=== PATIENT | female | born 1970 | race Caucasian/White ===

== ENCOUNTER 2017-07-14 14:45 | Emergency (ER) | payer MEDICAID ==
[~2017-07-14] VITALS: Ht 180.3 cm; Wt 72.7 kg
[2017-07-14] MEDS ORDERED: IBUP-2071 PO (14:49)
[2017-07-14] MEDS ORDERED: ACETAMINOPHEN/CODEINE 300-30 MG TABLET PO ONE (16:30)
[2017-07-14 16:48] VITALS: BP 119/81
== END 2017-07-14 17:33 | disposition home or self-care (01) ==
LOC: EMS 14:48
DX: S30.0XXA Contusion of lower back and pelvis, initial encounter (principal); S80.02XA Contusion of left knee, initial encounter; M25.572 Pain in left ankle and joints of left foot; W22.8XXA Striking against or struck by other objects, initial encounter; Y93.89 Activity, other specified; Y92.811 Bus as the place of occurrence of the external cause; Y99.8 Other external cause status
CPT/HCPCS: 99284

== ENCOUNTER 2020-05-28 17:37 | Emergency (ER) | payer MEDICAID, OTHER ==
[~2020-05-28] VITALS: Ht 162.6 cm; Wt 52.3 kg
[~2020-05-28 17:37] MED LIST: IBUP-2071 PO
[2020-05-28] MEDS ORDERED: ONDANSETRON HCL 4 MG/2 ML VIAL IVP ONE ×2 (18:15→20:15)
[2020-05-28] MEDS ORDERED: SODIUM CHLORIDE 0.9% 1,000 ML IV ONE ×2 (18:15→20:15)
[2020-05-28 19:00] LABS: BASOPHILS % (AUTO) 0.1 % (0.0-2.0); EOSINOPHILS % (AUTO) 0.1 % (1.0-6.0); HEMATOCRIT 42.6 % (36-46); HEMOGLOBIN 14.4 g/dL (12.0-16.0); LYMPHOCYTES # (AUTO) 0.6 K/uL (1.0-4.8); LYMPHOCYTES % (AUTO) 3.5 % (22.0-44.0); MEAN CORPUSCULAR HEMOGLOBIN 35.3 pg (26.0-34.0); MEAN CORPUSCULAR HGB CONC 33.9 G/dL (31.0-37.0); MEAN CORPUSCULAR VOLUME 104 fL (80-100); MONOCYTES # (AUTO) 0.7 K/uL (0.1-1.0); MONOCYTES % (AUTO) 3.9 % (2.0-9.0); NEUTROPHILS # (AUTO) 15.6 K/uL (1.8-7.7); NEUTROPHILS % (AUTO) 92.4 % (40.0-70.0); PLATELET COUNT (AUTO) 127 K/uL (150-450); RED BLOOD CELL COUNT(AUTO) 4.09 MIL/uL (4.00-5.20)
[2020-05-28 19:11] LABS: COVID AG,FIA SOURCE NASOPHARYNGEAL
[2020-05-28 19:20] LABS: ALBUMIN 3.4 g/dL (3.4-5.0); ALKALINE PHOSPHATASE 128 U/L (46-116); ANION GAP 16 mmol/L (8-16); BILIRUBIN,TOTAL 6.4 mg/dL (0.1-1.0); CALCIUM, TOTAL 7.8 mg/dL (8.8-10.5); CARBON DIOXIDE 19 mmol/L (22-29); CHLORIDE 97 mmol/L (98-107); CREATININE 2.94 mg/dL (0.60-1.30); GLOMERULAR FILTR. RATE CALC 17 mL/min (>60); GLUCOSE,RANDOM 50 mg/dL (70-110); HCG,QUANTITATIVE 1 mIU/mL (0-6); LIPASE 69 U/L (73-393); POTASSIUM 3.7 mmol/L (3.5-5.1); SODIUM SERUM 132 mmol/L (136-145); TOTAL PROTEIN, SERUM 6.5 g/dL (6.4-8.2); UREA NITROGEN, BLOOD 50 mg/dL (7-18)
[2020-05-28 19:43] LABS: ALANINE AMINOTRANSFERASE 7946 U/L (12-78)
[2020-05-28 19:46] LABS: INFLUENZA TYPE A NEGATIVE FOR TYPE A (NEGATIVE); INFLUENZA TYPE B NEGATIVE FOR TYPE B (NEGATIVE)
[2020-05-28 19:48] LABS: ASPARTATE AMINOTRANSFERASE 6392 U/L (15-37)
[2020-05-28 20:17] LABS: ACETAMINOPHEN < 2 mcg/mL (10-30)
[2020-05-28 20:19] LABS: PROTHROMBIN TIME 20.4 SEC (9.4-11.6)
[2020-05-28] MEDS ORDERED: METOCLOPRAMIDE HCL 5 MG/ML 2 ML VIAL IVP ONE (21:00)
[2020-05-28] MEDS ORDERED: DEXTROSE 50%-WATER 25 GM/50 ML SYRINGE IVP ONE (21:00)
[2020-05-28] MEDS ORDERED: PHYTONADIONE 10 MG/1 ML AMP IM ONE (21:15)
[2020-05-28] MEDS ORDERED: ACETYLCYSTEINE IV ONE ×3 (21:45→23:00)
[2020-05-28] MEDS ORDERED: WATER IV ONE ×3 (21:45→23:00)
[2020-05-28] MEDS ORDERED: DEXTROSE 5% IV ONE ×3 (21:45→23:00)
[2020-05-28 21:57] LABS: GLUCOSE,POINT OF CARE 275 MG/DL (70-110)
[2020-05-28] MEDS ORDERED: LORazepam 2 MG TABLET PO PRN (22:30)
[2020-05-28 22:47] LABS: CALCIUM, TOTAL 6.6 mg/dL (8.8-10.5); CREATININE 2.93 mg/dL (0.60-1.30); POTASSIUM 3.1 mmol/L (3.5-5.1)
[2020-05-28 22:58] LABS: ALBUMIN 2.7 g/dL (3.4-5.0); BILIRUBIN,TOTAL 5.4 mg/dL (0.1-1.0); TOTAL PROTEIN, SERUM 5.3 g/dL (6.4-8.2)
[2020-05-28 23:09] LABS: LACTIC ACID 2.3 mmol/L (0.4-2.0)
[2020-05-28] MEDS: 1: MAGNESIUM SULFATE 2 GM, MVI, ADULT NO.1 WITH VIT K 10 ML, THIAMINE 100 MG, FOLIC ACID IV SCH ×5 (23:50)
[2020-05-29] LABS: GLUCOSE,POINT OF CARE 219 MG/DL (70-110)
[2020-05-29] MEDS ORDERED: ACETYLCYSTEINE IV ONE (03:00)
[2020-05-29] MEDS ORDERED: WATER IV ONE (03:00)
[2020-05-29] MEDS ORDERED: DEXTROSE 5% IV ONE (03:00)
[2020-05-29 04:17] LABS: GLUCOSE,POINT OF CARE 151 MG/DL (70-110)
[2020-05-29 04:27] LABS: APPEARANCE,URINE CLOUDY (CLEAR); BILIRUBIN,URINE NEGATIVE (NEGATIVE); GLUCOSE, URINE (UA) NEGATIVE (NEGATIVE); KETONES,URINE TRACE mg/dL (NEGATIVE); LEUKOCYTE ESTERASE ,URINE NEGATIVE (NEGATIVE); NITRATE,URINE NEGATIVE (NEGATIVE); OCCULT BLOOD,URINE MODERATE (NEGATIVE); PH,URINE 5.5 (5.0-8.0); PROTEIN,URINE TRACE (NEGATIVE); UROBILINOGEN,URINE 0.2 mg/dL (<=1.0)
[2020-05-29 04:33] LABS: AMPHET/METH SCREEN,URINE NEGATIVE (NEGATIVE); BARBITURATE SCREEN, URINE NEGATIVE (NEGATIVE); BENZODIAZEPINES SCREEN,URINE NEGATIVE (NEGATIVE); CANNABINOID SCREEN,URINE NEGATIVE (NEGATIVE); COCAINE SCREEN,URINE NEGATIVE (NEGATIVE); METHADONE SCREEN, URINE NEGATIVE (NEGATIVE); OPIATE SCREEN,URINE NEGATIVE (NEGATIVE)
[2020-05-29 04:38] LABS: PHENCYCLIDINE SCREEN,URINE NEGATIVE (NEGATIVE)
[2020-05-29 04:47] LABS: BACTERIA,URINE Few /HPF (None Seen); SQUAMOUS EPITHELIAL CELL,UR Rare /LPF (None Seen); WBC,URINE 0-2 /HPF (0-5)
[2020-05-29] MEDS ORDERED: LORazepam 2 MG TABLET PO PRN (07:00)
[2020-05-29] MEDS ORDERED: LORazepam 2 MG TABLET PO SCH (09:00)
[2020-05-29] MEDS ORDERED: DEXTROSE 50%-WATER 25 GM/50 ML SYRINGE IVP PRN (09:30)
[2020-05-29] MEDS ORDERED: INSULIN LISPRO 100 UNITS/ML SQ PRN (09:30)
[2020-05-29] MEDS ORDERED: POTASSIUM CHLORIDE 8 MEQ ER TABLET PO ONE (09:30)
[2020-05-29 09:31] LABS: INR 1.7 (0.9-1.1); PROTHROMBIN TIME 17.2 SEC (9.4-11.6)
[2020-05-29 11:01] LABS: GLUCOSE,POINT OF CARE 123 MG/DL (70-110)
[2020-05-29] MEDS: 1: MAGNESIUM SULFATE 2 GM, MVI, ADULT NO.1 WITH VIT K 10 ML, THIAMINE 100 MG, FOLIC ACID IV SCH ×5 (11:37)
[2020-05-29 12:30] VITALS: BP 110/74
[2020-05-29 12:55] LABS: CALCIUM, TOTAL 7.1 mg/dL (8.8-10.5); CREATININE 2.14 mg/dL (0.60-1.30)
[2020-05-29 13:03] LABS: POTASSIUM 2.8 mmol/L (3.5-5.1)
[2020-05-31] MEDS ORDERED: LORazepam 1 MG TABLET PO PRN (07:00)
[2020-05-31] MEDS ORDERED: LORazepam 1 MG TABLET PO SCH (09:00)
[2020-06-01] MEDS ORDERED: LORazepam 1 MG TABLET PO PRN (07:00)
== END 2020-05-29 12:43 | disposition designated cancer center or children's hospital (05) ==
LOC: EMS 17:37
DX: K72.90 Hepatic failure, unspecified without coma (principal); N28.9 Disorder of kidney and ureter, unspecified; R73.9 Hyperglycemia, unspecified; F17.210 Nicotine dependence, cigarettes, uncomplicated; Z20.828 Contact with and (suspected) exposure to other viral communicable diseases
CPT/HCPCS: 36415; 71045; 76700; 80053; 80074; 80307; 81001; 82948; 82962; 83605; 83690; 84702; 85025; 85610; 87040; 87426; 87804; 93005; 96361; 96365; 96366 ×2; 96368; 96372; 96375; 96376; 99291; G0480; J0132 ×2; J2405; J2765; J3411; J3430; J3475; J3490 ×2; J7030; J7060 ×3; U0003; G0481

== ENCOUNTER 2021-07-04 16:39 | Emergency (ER) | payer OTHER ==
[~2021-07-04] VITALS: Ht 177.8 cm; Wt 54.5 kg
[2021-07-04] MEDS ORDERED: HYDROCODONE/ACETAMINOPHEN 5-325 MG TABLET PO ONE (19:30)
[2021-07-04] MEDS ORDERED: ONDANSETRON HCL 4 MG TABLET PO ONE (19:30)
[2021-07-04 19:50] VITALS: BP 122/68
[2021-07-04 20:26] LABS: COVID AG,FIA SOURCE NASOPHARYNGEAL
[2021-07-04 20:54] LABS: INFLUENZA TYPE A NEGATIVE FOR TYPE A (NEGATIVE); INFLUENZA TYPE B NEGATIVE FOR TYPE B (NEGATIVE)
== END 2021-07-04 20:00 | disposition home or self-care (01) ==
LOC: EMS 16:50
DX: U07.1 COVID-19 (principal); F17.210 Nicotine dependence, cigarettes, uncomplicated
CPT/HCPCS: 87426; 87804; 99283; C9803; Q0162; U0003

== ENCOUNTER 2022-01-13 21:08 | Emergency (ER) | payer OTHER ==
[~2022-01-13] VITALS: Ht 177.8 cm; Wt 54.5 kg
[2022-01-13 21:22] VITALS: BP 142/89
== END 2022-01-13 21:47 | disposition home or self-care (01) ==
LOC: EMS 21:09
DX: R52 Pain, unspecified (principal); R09.81 Nasal congestion; R50.9 Fever, unspecified; J02.9 Acute pharyngitis, unspecified; R11.0 Nausea; F17.210 Nicotine dependence, cigarettes, uncomplicated; Z20.822 Contact with and (suspected) exposure to COVID-19; Z98.890 Other specified postprocedural states
CPT/HCPCS: 99283; U0003; C9803